=== PATIENT | male | born 2000 | race Caucasian/White ===

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

== ENCOUNTER 2022-05-04 12:07 | Emergency (ER) | payer BC ==
[~2022-05-04] VITALS: Ht 165.1 cm; Wt 100.2 kg
[2022-05-04 12:09] VITALS: BP 141/80
== END 2022-05-04 19:15 | disposition left against medical advice (07) ==
LOC: M ED 12:07
DX: Z53.21 Procedure and treatment not carried out due to patient leaving prior to being seen by health care provider (principal)